=== PATIENT | male | born 1950 | race Caucasian/White ===

== ENCOUNTER 2019-10-01 11:10 | Emergency (ER) | payer OTHER ==
[~2019-10-01] VITALS: Ht 193 cm; Wt 120.5 kg
[2019-10-01 11:14] VITALS: BP 138/72; TEMP 98
[2019-10-01] MEDS ORDERED: CEPHALEXIN500 M1 PO (12:10)
[2019-10-01 12:17] VITALS: PULSE 61
== END 2019-10-01 12:14 | disposition home or self-care (01) ==
LOC: COL.ER 11:10
DX: S67.193A Crushing injury of left middle finger, initial encounter (principal); K21.9 Gastro-esophageal reflux disease without esophagitis; W23.0XXA Caught, crushed, jammed, or pinched between moving objects, initial encounter; Y92.59 Other trade areas as the place of occurrence of the external cause

== ENCOUNTER 2020-01-04 08:40 | Inpatient (IN) | payer OTHER ==
[~2020-01-04 08:40] MED LIST: CEPHALEXIN500 M1 PO
[2020-02-24] VITALS (11 sets, daily range): BP systolic 99–135; BP diastolic 60–82; PULSE 46–68; TEMP 97.4–98.6
[2020-02-24] MEDS ORDERED: PROTONIX 40MG T40 MG PO (11:20)
[2020-02-24] MEDS ORDERED: EQUATE ALLERGY RELIE PO (11:22)
--- NOTE | 2020-02-24 11:40 | NUR ---
PATIENT AMBULATED INTO AMBULATORY UNIT WITH STEADY GAIT. ALERT AND ORIENTED X 3. CONSENT EXPLAINED AND PATIENT SIGNED CONSENT. SEE ADMISSION ASSESSMENT. PATIENT RESTING ON BED AND WATCHING TV.
--- NOTE | 2020-02-24 18:00 | NUR ---
Patient has been doing well since gettting back from surgery. Denies nausea and pain. His output from the mckinney was bloody with clots for about an hour. CBI was flowing wide open. Patients urine has since cleared up and we were able to decrease the CBI flow. Patient has ate and drank. Discussed him being slow with moving and transfers as not to strain and cause more bleeding. No other changes at this time. Call light within reach.
[2020-02-24 18:11] LABS: CALCIUM 9.6 mg/dL (8.4-10.2); CREATININE, serum 0.92 (0.66-1.25); POTASSIUM 4.2 mmol/L (3.4-5.0)
--- NOTE | 2020-02-24 19:30 | NUR ---
Received report from Clara. Seen patient in bed, eating his dinner. He is alert and oriented. With ongoing CBI draining reddish to pink urine. Patient denies pain. He was able to finish his dinner and was asking for a sandwich box for later. He uses CPAP at night. Call light within reach.
[2020-02-25 04:20] VITALS: BP 106/62; PULSE 72; TEMP 97.6
--- NOTE | 2020-02-25 07:06 | NUR ---
Patent had uneventful night. CBI drains well with reddish to pink output. He denies pain. Shifted IV to INT as he was drinking fluids.
[2020-02-25 07:54] VITALS: BP 103/59; PULSE 66; TEMP 97.7
[2020-02-25 10:00] VITALS: BP 100/56; PULSE 66; TEMP 98
--- NOTE | 2020-02-25 11:58 | NUR ---
JUDAH met with the patient to discuss discharge plan. The patient lives outside of [place] with his life partner, Floridalma Elliott (ph#[phone]). He reports independence with ADLs and does not use any ambulatory devices. He has a CPAP at home. The patient's primary care provider is Ms. Corona at the [facility] and he receives his medications from the [facility]. The patient does not have a DPOA-HC in EMR, but he states that he does have one completed and it designates his life partner, Floridalma. He states that the document is at home. The patient plans to return home with Floridalma upon discharge. JUDAH then contacted Floridalma to review the d/c plan. Floridalma reports no concerns with the patient returning back home with him upon discharge. Floridalma confirms that she is the patient's DPOA-HC and that they have the forms somewhere at home. She states that she will look for them and can bring them up to the hospital sometime. No additional needs at this time.
--- NOTE | 2020-02-25 13:35 | NUR ---
First visit from the pallet rectifier. No needs right now.
[2020-02-25 16:00] VITALS: BP 108/65; PULSE 57; TEMP 97.7
[2020-02-25 19:24] VITALS: BP 123/68; PULSE 61; TEMP 97.5
--- NOTE | 2020-02-25 21:00 | NUR ---
PT IN BED, HAS CPAP ON. HOUSER CARES GIVEN. CBI SLOW RATE, WITH PINK URINE. DENIES PAIN. HAS SL TO RIGHT HAND. WILL PRIME AND PULL CATHETER IN AM.
[2020-02-26] VITALS: BP 120/66; PULSE 94; TEMP 97.7
[2020-02-26 03:41] VITALS: BP 117/65; PULSE 70; TEMP 97.7
--- NOTE | 2020-02-26 06:15 | NUR ---
Primed mckinney with 250cc of saline, deflated balloon of 35cc and initiated removal of catheter. Had some difficulty with removal, attempted to remove more fluid from balloon, no further removed. Finally able to remove mckinney entirely. Had some bleeding after removal. Pt tolerated procedure well.
--- NOTE | 2020-02-26 06:42 | NUR ---
Pt voids 100cc of bloody urine with clot noted. Placed in cup 1.
[2020-02-26 08:00] VITALS: BP 130/74; PULSE 69; TEMP 97.8
[2020-02-26 11:48] VITALS: BP 131/83; PULSE 68; TEMP 98.4
[2020-02-26 15:06] VITALS: BP 106/60; PULSE 67; TEMP 97.7
--- NOTE | 2020-02-26 18:00 | NUR ---
Patient has been voiding well and making plenty of urine but his urine has been bloody. His first few voids were full of clots. The clots have cleared out but his urine is still red tinged. Patient has been resting comfortably. He is independent. He has been drinking plenty of fluids. He stated his urine stream is bloody most at the beginning and the end. Dr Landa seen the urine mid-morning. Patient will be staying the night and discharge in the morning. No other changes at this time. Call light within reach.
[2020-02-26 19:36] VITALS: BP 123/68; PULSE 69; TEMP 98
--- NOTE | 2020-02-26 19:50 | NUR ---
BLADDER SCANNED PT, HE FEELS HE MAY NOT BE EMPTYING HIS BLADDER. PT HAD JUST VOIDED 200CC OF BLOODY URINE. BLADDER SCAN DID NOT SHOW ANY URINE IN BLADDER. JARED CARES GIVEN.
--- NOTE | 2020-02-26 21:30 | NUR ---
PT IN BED, HAS CPAP ON. TAKES HS MED. EMPTIED 500CC OF BLOODY URINE FROM URINAL. SL TO RIGHT HAND WITHOUT REDNESS OR SWELLING. IS ALERT AND ORIENTED X4. DENIES PAIN OR NEEDS AT THIS TIME.
--- NOTE | 2020-02-27 01:51 | NUR ---
Pt's urine is light tea colored, no clots seen.
--- NOTE | 2020-02-27 04:25 | NUR ---
PT REPORTS LOWER BACK, LEFT FLANK PAIN. MEDICATED WITH TYLENOL 650MG PO AND WARM PACK PROVIDED. URINE IS DARK TEA, NO CLOTS. VOIDING WITHOUT PROBLEM.
[2020-02-27 04:30] VITALS: BP 117/85; PULSE 59; TEMP 97.8
[2020-02-27 07:05] VITALS: BP 114/74; PULSE 58; TEMP 98
[2020-02-27 11:10] VITALS: BP 117/76; PULSE 60; TEMP 97.9
--- NOTE | 2020-02-27 14:27 | NUR ---
Discharge instructions reviewed with patient, verbalized understanding. Discharged ambulatory to auto/home with spouse at 1425.
== END 2020-02-27 14:25 | disposition home or self-care (01) | DRG 713 ==
LOC: SURG 01-19 12:30 → INPTSU 02-24 10:09 → SURG 02-24 12:30
PROVIDERS: ADMIT Urology
PROC: 0VB07ZZ Excision of Prostate, Via Natural or Artificial Opening (ICD-10-PCS; principal; 2020-02-24 13:00)
DX: N40.1 Benign prostatic hyperplasia with lower urinary tract symptoms (principal); N13.8 Other obstructive and reflux uropathy; R33.8 Other retention of urine; R35.1 Nocturia; R39.12 Poor urinary stream
CPT/HCPCS: J0690; J1100; J1885; J2405; J2704; J3010; J7120

== ENCOUNTER 2021-04-04 10:57 | Emergency (ER) | payer OTHER, MEDICARE ==
[~2021-04-04] VITALS: Ht 193 cm; Wt 121.4 kg
[~2021-04-04 10:57] MED LIST changes: +EQUATE ALLERGY RELIE PO; +PROTONIX 40MG T40 MG PO
[2021-04-04 11:32] VITALS: TEMP 97.8
[2021-04-04] MEDS ORDERED: CEPHALEXIN500 M1 PO (15:13)
[2021-04-04 15:30] VITALS: BP 129/96; PULSE 57
[2021-04-05] MEDS ORDERED: NORCO 325 MG-51 TAB PO (09:30)
[2021-04-05] MEDS ORDERED: PYRIDIUM 100MG100 MG PO (10:51)
== END 2021-04-04 15:30 | disposition home or self-care (01) ==
LOC: COL.ER 10:57
DX: S62.637A Displaced fracture of distal phalanx of left little finger, initial encounter for closed fracture (principal); S61.317A Laceration without foreign body of left little finger with damage to nail, initial encounter; K21.9 Gastro-esophageal reflux disease without esophagitis; Z87.891 Personal history of nicotine dependence; Z79.899 Other long term (current) drug therapy; W23.1XXA Caught, crushed, jammed, or pinched between stationary objects, initial encounter

== ENCOUNTER 2021-04-05 07:52 | Day surgery (SDC) | payer OTHER ==
[~2021-04-05] VITALS: Ht 193 cm; Wt 116.5 kg
[2021-04-05] VITALS (10 sets, daily range): BP systolic 108–145; BP diastolic 47–87; PULSE 51–95; TEMP 97.7–98.1
[2021-04-05] MEDS ORDERED: NORCO 325 MG-51 TAB PO (09:30)
--- NOTE | 2021-04-05 09:44 | NUR ---
70 Year old male admitted to [facility] bay #6 via ambulation, no assistive devices used and the patient has a steady gait. Medicaitons and HX reviewed. The patient is [place] and did not bring his bilateral hearing aids to the facility. The patient brought his personal medications to the facility, which are located in his brown bag. Vitals obtained and are WNL. He presents with a L hand injury, which is wrapped in coband. The patient voided prior to changing and changed into a clean gown without assistance. Non-slip socks are on. Warm blanket provided. The patient is currently taking an antibiotic, see med rec. His last dose was this 04.05.2021 @ 0545. Call glass is within reach on the bedside table.
--- NOTE | 2021-04-05 09:45 | NUR ---
Patient states having a current DNR status. He also stated that he did not want to be a full code for this procedure. Stating "if I go, I go. Don't bother me." The RN documented this in his health assessment, and placed a note on his chart. IV was started in his R hand on first attempt. LR was scanned and is infusing without difficulty. Side rails x2. Call glass is on his lap.
--- NOTE | 2021-04-05 09:49 | NUR ---
Pharmacy was called in regards to the Narco that the patient brought from home. Pharmacy told the RN to have that patient keep it in his bag, and Medical/Surgical will know what to do with it and will process it accordingly. RN verbalized understanding and told the patient not to take any of it.
--- NOTE | 2021-04-05 10:05 | NUR ---
was in to speak with the patient.
--- NOTE | 2021-04-05 10:28 | NUR ---
FRONT ATTENDANT was in to speak with the patient.
[2021-04-05] MEDS ORDERED: PYRIDIUM 100MG100 MG PO (10:51)
--- NOTE | 2021-04-05 13:36 | NUR ---
PT TO ROOM 332 PERBED WITH REPORT FROM [facility] @0680. PT IS A\O X3, LUNGS CLEAR. BOWEL SOUNDS ACTIVE. CBI RUNNING 5000 CR. PHILLIPS RED URINE IN BAG.. IV TO RIGHT HAND.
--- NOTE | 2021-04-05 17:21 | NUR ---
DRESSING CHANGE COMPLETE PER PT REQUEST.
[2021-04-06 04:12] VITALS: BP 102/61; PULSE 56; TEMP 97.5
--- NOTE | 2021-04-06 04:43 | NUR ---
PT AWAKE @ THIS TIME, HAS SLEPT ON ET OFF THROUGH NIGHT, HAS HAD PAIN IN HIS LEFT HAND FROM PREVIOUS INJURY. TYLENOL DID RELIEVE PAIN, DRESSING ON HAND IS CDI. CBI IS INFUSING @ A MODERATE RATE ET URINE IS LIGHT PINK. OCCASIONAL SMALL CLOTS SEEN. IVF WAS STOPPED ET IV IS SALINE LOCKED PER ORDERS. PT IS ADEQUATELY DRINKING ET EATING WITH NO PROBLEMS. PT DENIES OTHER NEEDS @ THIS TIME. CALL LIGHT WITHIN REACH.
[2021-04-06 08:05] VITALS: BP 112/66; PULSE 72; TEMP 97.8
--- NOTE | 2021-04-06 08:37 | NUR ---
PT UP IN BED EATING BREAKFAST. CBI RUNNING AT A MODERATE RATE. PHILLIPS CLEAR FLUID IN BAG. PT REPORTING PAIN 3/10 TO LEFT HAND.
--- NOTE | 2021-04-06 09:27 | NUR ---
JUDAH met with the patient to discuss discharge plan. The patient lives outside [place] with his life partner, Floridalma (ph#[phone]). He reports independence with ADLs and does not have any DME. The patient's primary care provider is Clara Cameron with the [facility] and he receives his medications from the [facility]. The patient does not have a DPOA-HC in EMR, but he states that he does have one completed and that it designates Floridalma. The patient plans on returning home with his life partner upon discharge. No additional needs at this time. *Discharge plan: home with life partner*
[2021-04-06 12:21] VITALS: BP 120/73; PULSE 65; TEMP 97.5
--- NOTE | 2021-04-06 13:49 | NUR ---
Initial visit; Patient thanked Psych Np for letting him know of the availability of spiritual care at our hospital.
--- NOTE | 2021-04-06 14:30 | NUR ---
CONTACTED VINCENT MARVIN LEFT VOICE MAIL FOR PLANNING FOR PT IN 332.
[2021-04-06 15:50] VITALS: BP 110/62; PULSE 59; TEMP 97.6
[2021-04-06 19:39] VITALS: BP 110/62; PULSE 57; TEMP 97.7
[2021-04-06 22:41] VITALS: BP 109/70; PULSE 60; TEMP 98
[2021-04-07 00:24] VITALS: BP 107/57; PULSE 68; TEMP 98.4
[2021-04-07 04:30] VITALS: BP 108/62; PULSE 60; TEMP 98.1
--- NOTE | 2021-04-07 06:05 | NUR ---
PT RESTING QUIETLY IN BED, SLEEPS ON ET OFF. PT HAS DENIED PAIN THROUGH NIGHT. DRESSING TO LEFT HAND CHANGED, PT TOLERATED WELL. FINGER IS WRAPPED WITH TELFA, STABILIZER ET THEN COBAN APPLIED. SUTURES ARE INTACT. CBI RUNNING @ A MODERATE/SLOW RATE. URINE IN HOUSER TUBING IS PEACH ET CLEAR. PT HAS NOT HAD BLADDER SPASMS DURING NIGHT. PT REQUESTS COFFEE, DENIES OTHER NEEDS. RESPIRATIONS ARE UNLABORED. CALL LIGHT WITHIN REACH.
--- NOTE | 2021-04-07 06:40 | NUR ---
awake resting in bed, bedside shift report received from SHEELA Jacobson
[2021-04-07 07:31] VITALS: BP 128/80; PULSE 75; TEMP 97.8
--- NOTE | 2021-04-07 07:45 | NUR ---
full assessment completed, see interventions for further info, mckinney catheter discontinued, instructed on using urinal and calling when he voids to keep track of voids, verbalizes understanding
--- NOTE | 2021-04-07 09:30 | NUR ---
up and about in room independently, voided approx 400ml red colored urine, states this was his second void but did not get emptied after first void
--- NOTE | 2021-04-07 10:27 | NUR ---
Follow-up visit; Patient very nice, Supervisor [employer] spoke to him about his [employer] and ordered some honey. Patient preparing to be discharged and stated his stay at [facility] has been a good one.
[2021-04-07 12:06] VITALS: BP 130/75; PULSE 68; TEMP 97.7
--- NOTE | 2021-04-07 13:39 | NUR ---
has had 6 voids of clear pink urine, left message for Ramiro MARVIN
[2021-04-07 15:15] VITALS: BP 112/63; PULSE 69; TEMP 98.2
--- NOTE | 2021-04-07 17:37 | NUR ---
INT discontinued, discharge instructions given to patient, verbalizes understanding
--- NOTE | 2021-04-07 17:51 | NUR ---
discharged ambulatory
== END 2021-04-07 17:52 | disposition home or self-care (01) ==
LOC: SDCO 07:52 → SURG 13:05 → SDCO 04-07 17:52
DX: N40.1 Benign prostatic hyperplasia with lower urinary tract symptoms (principal); R31.0 Gross hematuria; R39.12 Poor urinary stream; R33.8 Other retention of urine; R97.20 Elevated prostate specific antigen [PSA]; I10 Essential (primary) hypertension; K21.9 Gastro-esophageal reflux disease without esophagitis; E78.00 Pure hypercholesterolemia, unspecified; E78.5 Hyperlipidemia, unspecified; R73.01 Impaired fasting glucose; M19.90 Unspecified osteoarthritis, unspecified site; Z79.899 Other long term (current) drug therapy
CPT/HCPCS: OP; J0690; J1100; J2405; J2704; J3010; J3480; J7120

== ENCOUNTER 2023-04-30 09:31 | Emergency (ER) | payer OTHER ==
[~2023-04-30] VITALS: Ht 193 cm; Wt 118.2 kg
[~2023-04-30 09:31] MED LIST changes: +NORCO 325 MG-51 TAB PO; +PYRIDIUM 100MG100 MG PO
[2023-04-30 09:59] VITALS: TEMP 98.2
[2023-04-30 10:53] LABS: BASO # 0.1 K/mm3 (0.0-0.2); BASO % 1.4 % (0.0-2.0); EOS # 0.3 K/mm3 (0.0-0.7); EOS % 4.9 % (0.0-4.0); GRAN # 3.4 K/mm3 (1.4-6.5); GRAN % 61.3 % (42.2-75.2); HEMATOCRIT 46.1 % (42.0-52.0); LYMPH # 1.4 K/mm3 (1.2-3.4); LYMPH % 25.9 % (20.0-51.0); MEAN CELL VOLUME 87 fl (80.0-100.0); MEAN CORPUSCULAR HEMOGLOBIN 30 pg (27-31); MEAN CORPUSCULAR HGB CONC 35 g/dl (33.0-37.0); MEAN PLATELET VOLUME 9.8 fl (7.4-10.4); MONO # 0.3 K/mm3 (0.1-0.6); MONO % 6.1 % (1.7-9.3); PLATELET COUNT 236 K/mm3 (130-400); RED BLOOD COUNT 5.33 M/mm3 (4.20-5.60); REDCELL DISTRIBUTION WIDTH-CV 13.2 % (11.5-14.5)
[2023-04-30] MEDS ORDERED: CEFTIN 250250 MG/TAB PO (11:14)
[2023-04-30 11:23] LABS: ALBUMIN 3.9 gm/dL (3.4-4.8); BILIRUBIN,TOTAL 0.8 mg/dL (0.2-1.2); CALCIUM 10.1 mg/dL (8.4-10.2); CREATININE, serum 0.9 mg/dL (0.72-1.25); POTASSIUM 3.8 mmol/L (3.5-4.5); TOTAL PROTEIN 6.2 gm/dL (6.2-8.1)
[2023-04-30 11:31] VITALS: BP 135/91; PULSE 62
[2023-04-30 11:32] LABS: URINE APPEARANCE TURBID (CLEAR/HAZY); URINE COLOR Red (YELLOW)
[2023-04-30 11:33] LABS: URINE BLOOD 3+ (NEGATIVE)
[2023-04-30 11:53] LABS: COLLECTION METHOD CLEAN CATCH
[2023-04-30 11:56] LABS: PH 8.5 (5-8); URINE GLUCOSE NEGATIVE (NEGATIVE); URINE KETONE 2+ (NEGATIVE); URINE NITRATE NEGATIVE (NEGATIVE); URINE PROTEIN(semi-quant) 3+ (BEGATIVE)
[2023-04-30 12:01] LABS: SQUAMOUS EPITHELIAL NONE SEEN /hpf (0-10); URINE BACTERIA NONE SEEN /hpf (NONE SEEN); URINE RBC >50 /hpf (0-2)
== END 2023-04-30 11:31 | disposition home or self-care (01) ==
LOC: COL.ER 09:31
PROVIDERS: Family Medicine
DX: R31.9 Hematuria, unspecified (principal)